=== PATIENT | male | born 1965 | race Caucasian/White ===

== ENCOUNTER 2017-04-11 11:31 | Emergency (ER) | payer BC ==
--- NOTE | 2017-04-11 13:04 | RAD ---
INDICATION: Abdominal pain and constipation COMPARISON: None TECHNIQUE: 2 views the abdomen were obtained. FINDINGS: There is stool seen throughout most of the colon although the colon is not pathologically dilated proximally. There is stool filling the rectal vault measuring up to 9.5 cm in diameter. No evidence of free intraperitoneal gas. Surgical clips are noted overlying the right lower quadrant. IMPRESSION: DILATATION OF THE STOOL FILLED RECTUM MEASURING 9.5 CM IN DIAMETER CONSISTENT WITH A HISTORY OF CONSTIPATION.
[2017-04-11 14:01] VITALS: BP 107/68
--- NOTE | 2017-04-11 17:16 | ED ---
Thomas Watts Julia, scribed for Dre Vega MD on 04/11/17 at 1228 . Abdominal Pain/Male - HPI Summary HPI Summary: This patient is a 51 year old M presenting to [facility] with a chief complaint of gradually worsening abdominal pain beginning today. The patient rates the pain 7 /10 in severity. Patient reports constipation, rectal pain, nausea, and leg weakness.Patient denies urinary symptoms or changes in appetite. Patient is unsure of last BM. Patient had an appendectomy and a history of depression, anxiety, and Peyronies. - History of Current Complaint Chief Complaint: EDAbdPain Stated Complaint: ABD PAIN Time Seen by Provider: 04/11/17 12:13 Hx Obtained From: Patient Onset/Duration: Gradual Onset Timing: Lasting Hours Pain Intensity: 7 Pain Scale Used: 0-10 Numeric Location: Diffuse, Other - rectal Associated Signs And Symptoms: Positive: Constipation, Nausea - Allergies/Home Medications Allergies/Adverse Reactions: Allergies Allergy/AdvReac Type Severity Reaction Status Date / Time No Known Allergies Allergy Verified 04/11/17 11:44 PMH/Surg Hx/FS Hx/Imm Hx History: Reports: Other Problems/Disorders - peyronie's Psychiatric History: Reports: Hx Anxiety, Hx Depression Infectious Disease History: No Infectious Disease History: Denies: Traveled Outside the [place] in Last 30 Days - Family History Known Family History: Negative: Diabetes - Social History Alcohol Use: None Hx Tobacco Use: No Smoking Status (MU): Never Smoked Tobacco Review of Systems Gastrointestinal: Negative - change in appetite Positive: Abdominal Pain, Nausea, Other - constipation and rectal pain Positive: no symptoms reported Positive: Other - leg weakness All Other Systems Reviewed And Are Negative: Yes Physical Exam - Summary Physical Exam Summary: Appearance: The patient is well-nourished in no acute distress and in no acute pain. Skin: The skin is warm and dry and skin color reflects adequate perfusion. HEENT: The head is normocephalic and atraumatic. The pupils are equal and reactive. The conjunctivae are clear and without drainage. Nares are patent and without drainage. Mouth reveals moist mucous membranes and the throat is without erythema and exudate. The external ears are intact. The ear canals are patent and without drainage. The tympanic membranes are intact. Neck: the neck is supple with full range of motion and non-tender. There are no carotid bruits. There is no neck vein distension. Respiratory: Chest is non-tender. Lungs are clear to auscultation and breath sounds are symmetrical and equal. Cardiovascular: Heart is regular rate and rhythm. There is no murmur or rub auscultated. There is no peripheral edema and pulses are symmetrical and equal. Abdomen: The abdomen is soft and non-tender. There are normal bowel sounds heard in all four quadrants and there is no organomegaly palpated. Rectal exam reveals hard stool at tip of finger. Musculoskeletal: There is no back tenderness noted. Extremities are non-tender with full range of motion. There is good capillary refill. There is no peripheral edema or calf tenderness elicited. Neurological: Patient is alert and oriented to person, place and time. The patient has symmetrical motor strength in all four extremities. Cranial nerves are grossly intact. Deep tendon reflexes are symmetrical and equal in all four extremities. Psychiatric: The patient has an appropriate affect and does not exhibit any anxiety or depression Triage Information Reviewed: Yes Vital Signs On Initial Exam: Initial Vitals Temp Pulse Resp BP Pulse Ox 98.2 F 73 16 124/95 98 04/11/17 11:42 04/11/17 11:42 04/11/17 11:42 04/11/17 11:42 04/11/17 11:42 Vital Signs Reviewed: Yes Diagnostics - Vital Signs Vital Signs Temp Pulse Resp BP Pulse Ox 04/11/17 12:20 66 100/61 99 04/11/17 12:18 65 98 04/11/17 11:42 98.2 F 73 16 124/95 98 - Laboratory Lab Statement: Any lab studies that have been ordered have been reviewed, and results considered in the medical decision making process. - Radiology Abdominal XR Radiology Interpretation Completed By: Radiologist - DILATATION OF THE STOOL FILLED RECTUM MEASURING 9.5 CM IN DIAMETER CONSISTENT WITH A HISTORY OF CONSTIPATION ED Physician has reviewed this report. Abdominal Pain Fem Course/Dx - Course Course Of Treatment: Mr. Monzon presented with a concern for constipation and abdominal pain when attempting to move his bowels. He passed a large BM shortly after getting here and felt better. - Diagnoses Provider Diagnoses: Constipation Discharge - Discharge Plan Condition: Stable Disposition: HOME Patient Education Materials: Constipation (ED) Referrals: Alok John MD [Primary Care Provider] - Additional Instructions: Patient is instructed to follow up with Primary Care Provider, Dr. John, if needed. RETURN TO THE EMERGENCY DEPARTMENT FOR CHANGING OR WORSENING SYMPTOMS The documentation as recorded by the Thomas segundo Julia accurately reflects the service I personally performed and the decisions made by me, Dre Vega MD.
== END 2017-04-11 14:00 | disposition home or self-care (01) ==
LOC: ED 11:31
DX: K59.00 Constipation, unspecified (principal)
CPT/HCPCS: 74018; 99282